=== PATIENT | male | born 1990 | race African-American/Black ===

== ENCOUNTER → 2023-05-11 21:31 | Emergency (ER) | payer BC, OTHER ==
[~2023-05-11] VITALS: Ht 152.4 cm; Wt 72.7 kg
[~2023-05-11 21:31] MED LIST: ACETAMINOPHEN 325 MG TAB PO ONE
[2023-05-11 21:46] VITALS: BP 163/85; PULSE 122; RESP 20; O2SAT 96
[2023-05-11 21:51] VITALS: TEMP 102.7
[2023-05-11 22:27] LABS: COVID19 ANTIGEN SOFIA FIA NEGATIVE (NEGATIVE)
[2023-05-11 22:31] LABS: Rapid Influenza A Negative (Negative); Rapid Influenza B Negative (Negative)
== END | disposition left against medical advice (07) ==
LOC: ER 21:31
DX: R50.9 Fever, unspecified (principal); R05.9 Cough, unspecified; Z53.21 Procedure and treatment not carried out due to patient leaving prior to being seen by health care provider; Z20.822 Contact with and (suspected) exposure to COVID-19
CPT/HCPCS: 36415; 87426; 87804